=== PATIENT | female | born 1970 | race Caucasian/White ===

== ENCOUNTER 2017-02-18 10:11 | Emergency (ER) | payer SELFPAY ==
[~2017-02-18] VITALS: Ht 157.5 cm; Wt 68.0 kg
[2017-02-18 10:15] VITALS: Ht 157.5 cm; Wt 68.0 kg
[2017-02-19] MEDS ORDERED: LEVO500T10 PO (10:44)
[2017-02-19] MEDS ORDERED: BUTA1CAP38 PO (10:45)
[2017-02-19] MEDS ORDERED: ALPR0.5T PO (11:11)
[2017-02-19] MEDS ORDERED: ONDA4TAB8 PO (11:11)
== END 2017-02-18 12:09 | disposition left against medical advice (07) ==
LOC: FTE 10:11
DX: Z53.21 Procedure and treatment not carried out due to patient leaving prior to being seen by health care provider (principal)

== ENCOUNTER 2017-02-19 06:38 | Emergency (ER) | payer MEDICAID ==
[~2017-02-19] VITALS: Ht 157.5 cm; Wt 68.5 kg
[2017-02-19 06:46] VITALS: Ht 157.5 cm; Wt 68.5 kg
[2017-02-19] MEDS ORDERED: ONDANSETRON 4 MG INJ IV STA (09:28)
[2017-02-19] MEDS ORDERED: HYDROmorphONE 1 MG/ML SYG IV STA (09:28)
[2017-02-19] MEDS ORDERED: SOD CHLORIDE 0.9% 1,000 ML IV STA (09:28)
--- NOTE | 2017-02-19 10:01 | ERD ---
ER Documentation Chief Complaint Chief Complaint pt bib self with c/o MOLINA for a few days, and chest pressure, seen at [facility] HPI 46-year-old woman complains of right sided headache 1 week and complains of recent nausea and dizziness. She was seen and evaluated recently at [facility] and diagnosed with urinary tract infection and prescribed levofloxacin once daily, which she states she has been using as prescribed. She states at [facility] a CT scan of the brain was performed and was unremarkable. She says she has continued right-sided headache as well as nausea, prescription anti-emetics were not provided. She denies fevers or chills, no blurry vision, no neck pain or stiffness, no chest pain or shortness of breath, no abdominal pain. She states she has these headaches about twice a month for many years and denies any difference between this week's headaches and prior headaches. ROS All systems reviewed and are negative except as per history of present illness. Medications Home Meds Active Scripts Ondansetron Hcl* (Zofran*) 4 Mg Tablet, 4 MG PO Q8H Y for NAUSEA AND/OR VOMITING , #12 TAB Prov:DB LOFTON MD 02/19/17 Alprazolam* (Xanax*) 0.5 Mg Tab, 0.5 MG PO TID for musc, #12 TAB Prov:DB LOFTON MD 02/19/17 Reported Medications Mkjipavrsf-Uussjarbzbdxs-Sajiuabc* (Fioricet*) Unknown Strength Capsule, 1 CAP PO Q4H Y for PAIN, CAP take q 4-6h 02/19/17 Levofloxacin* (Levofloxacin*) 500 Mg Tablet, 500 MG PO DAILY, TAB 02/19/17 Allergies Allergies: Coded Allergies: No Known Drug Allergy (Verified Allergy, Mild, N, 02/19/17) PMhx/Soc None History of Surgery: Yes (TUBAL LIGATION) Anesthesia Reaction: No Hx Neurological Disorder: No Hx Respiratory Disorders: No Hx Cardiac Disorders: No Hx Psychiatric Problems: No Hx Miscellaneous Medical Probl: No FmHx Family History: No diabetes Physical Exam Vitals Vital Signs Date Time Temp Pulse Resp B/P Pulse Ox O2 Delivery O2 Flow Rate FiO2 02/19/17 06:46 98.4 74 18 145/86 100 Physical Exam GENERAL: Well-developed, well-nourished, well-hydrated, in no apparent distress , looks nontoxic in appearance HEENT: Moist mucous membranes, pink conjunctiva, no cervical spine tenderness or step-off deformities, no goiter, no jaundice or icterus, extraocular movements intact without pain. No submandibular induration, and no pharyngeal erythema NEURO: Alert and oriented 3, cranial nerves II through XII intact bilaterally, pupils equal round reactive to light, no focal deficits or facial asymmetry, sensation intact distally Strength 5/5 in upper and lower extremities bilaterally CARDIAC: Regular rate and rhythm, no murmurs rubs or gallops LUNGS: Clear bilaterally no wheezing crackles or stridor ABDOMEN: Soft nontender, no guarding, no rigidity, no rebound, no psoas sign no obturator sign. Normoactive bowel sounds SKIN: Warm and dry to touch, no abrasions, contusions, or hematomas, no lacerations, no ecchymosis, no target lesions, and without ulcers EXTREMITIES: No clubbing cyanosis or edema, calves are bilaterally symmetrical, no Homans sign, no popliteal cord sign. Distal pulses equal and bilateral PSYCH: Normal affect without agitation or irritability Result Diagram: 02/19/1793402/19/17934 Results 24 hrs Laboratory Tests Test 02/19/17 09:20 02/19/17 09:35 Urine Color YELLOW Urine Clarity CLEAR Urine pH 5.0 Urine Specific [place] 1.010 Urine Ketones NEGATIVEmg/dL Urine Nitrite NEGATIVEmg/dL Urine Bilirubin NEGATIVEmg/dL Urine Urobilinogen NEGATIVEmg/dL Urine Leukocyte Esterase NEGATIVELeu/ul Urine Microscopic RBC > 182/HPF Urine Microscopic WBC 1/HPF Urine Squamous Epithelial Cells FEW/HPF Urine Hemoglobin 3+mg/dL Urine Glucose NEGATIVEmg/dL Urine Total Protein NEGATIVEmg/dl White Blood Count 8.410^3/ul Red Blood Count 4.5110^6/ul Hemoglobin 13.4g/dl Hematocrit 41.3% Mean Corpuscular Volume 91.6fl Mean Corpuscular Hemoglobin 29.7pg Mean Corpuscular Hemoglobin Concent 32.4g/dl Red Cell Distribution Width 13.5% Platelet Count 61939^3/UL Mean Platelet Volume 10.5fl Neutrophils % 51.7% Lymphocytes % 41.6% Monocytes % 5.1% Eosinophils % 1.0% Basophils % 0.5% Nucleated Red Blood Cells % 0.0/100WBC Neutrophils # 4.310^3/ul Lymphocytes # 3.510^3/ul Monocytes # 0.410^3/ul Eosinophils # 0.110^3/ul Basophils # 0.010^3/ul Nucleated Red Blood Cells # 0.010^3/ul Sodium Level 145mmol/L Potassium Level 3.9mmol/L Chloride Level 106mmol/L Carbon Dioxide Level 26mmol/L Anion Gap 17 Blood Urea Nitrogen 13mg/dl Creatinine 0.66mg/dl Glucose Level 87mg/dl Calcium Level 9.3mg/dl Total Bilirubin 0.2mg/dl Direct Bilirubin 0.00mg/dl Indirect Bilirubin 0.2mg/dl Aspartate Amino Transf (AST/SGOT) 18IU/L Alanine Aminotransferase (ALT/SGPT) 29IU/L Alkaline Phosphatase 75IU/L Total Protein 8.4g/dl Albumin 4.8g/dl Globulin 3.60g/dl Albumin/Globulin Ratio 1.33 Lipase 91U/L Current Medications Medications (Trade) Dose Ordered Sig/Pancho Route PRN Reason Start Time Stop Time Status Last Admin Dose Admin Sodium Chloride (NS) 1,000 ml @ 1,000 mls/hr Q1H STAT IV 02/19/17 09:28 02/19/17 10:27 DC 02/19/17 09:58 Hydromorphone HCl (Dilaudid) 1 mg ONCE STAT IV 02/19/17 09:28 02/19/17 09:29 DC 02/19/17 09:58 Ondansetron HCl (Zofran Inj) 4 mg ONCE STAT IV 02/19/17 09:28 02/19/17 09:29 DC 02/19/17 09:58 Procedures/[facility] IV line was established patient was placed on traffic monitor specialist rhythm strip revealed a sinus rhythm at about 70 bpm with upright P and T waves. Patient was afebrile. EKG performed, read by me: 70 bpm, normal sinus rhythm, normal axis, no acute ST segment changes, narrow QRS complex, with good R-wave progression in precordial leads. I administered 1 L normal saline intravenously, Zofran 4 mg IV, hydromorphone 1 mg IV with excellent effect. CBC and electrolytes are normal, liver function tests normal, urine analysis was negative for infection. Patient was recently diagnosed with urinary tract infection and is currently using levofloxacin, I recommended she continue her antibiotics until complete and agreed to provide her medications for dizziness and nausea to help with her symptoms. Differential diagnoses considered, included but not limited to acute coronary syndrome, pulmonary embolism, aortic dissection, abdominal aortic aneurysm, sepsis, stroke, meningitis, encephalitis, pneumonia, appendicitis, cholecystitis , bowel obstruction, pyelonephritis, nephrolithiasis, cystitis, as well as metabolic, hematologic, and electrolyte abnormalities. As well as abscess, cellulitis, fractures, and dislocations. Patient feels much better at this time, and vital signs are normal, symptoms have improved. I did give strict instructions to return to the ED if symptoms continue or worsen, patient will otherwise follow-up with primary care physician. Patient understood instructions and agreed to plan. Disclaimer: Inadvertent spelling and grammatical errors are likely due to EHR/ dictation software use and do not reflect on the overall quality of patient care. Also, please note that the electronic time recorded on this note does not necessarily reflect the actual time of the patient encounter. Departure Diagnosis: Primary Impression: MOLINA (headache) Headache type: tension-type Headache chronicity pattern: acute headache Intractability: intractable Qualified Code: G44.201 - Acute intractable tension-type headache Additional Impressions: Dizziness UTI (urinary tract infection) Urinary tract infection type: acute cystitis Hematuria presence: without hematuria Qualified Code: N30.00 - Acute cystitis without hematuria Condition: DB Thompson MD Feb 19, 2017 10:01
[2017-02-19 10:06] LABS: BASOPHILS % 0.5 % (0.0-2.0); EOSINOPHILS # 0.1 10^3/ul (0.0-0.5); HEMATOCRIT 41.3 % (37.0-47.0); HEMOGLOBIN 13.4 g/dl (12.0-16.0); LYMPHOCYTES # 3.5 10^3/ul (0.8-2.9); LYMPHOCYTES % 41.6 % (15.0-51.0); MEAN CORPUSCULAR HEMOGLOBIN 29.7 pg (29.0-33.0); MEAN CORPUSCULAR HGB CONC 32.4 g/dl (32.0-37.0); MEAN CORPUSCULAR VOLUME 91.6 fl (82.0-101.0); MEAN PLATELET VOLUME 10.5 fl (7.4-10.4); MONOCYTE # 0.4 10^3/ul (0.3-0.9); MONOCYTES % 5.1 % (0.0-11.0); NEUTROPHIL # 4.3 10^3/ul (1.6-7.5); NEUTROPHILS % 51.7 % (39.0-77.0); PLATELET COUNT 240 10^3/UL (140-415); RED BLOOD COUNT 4.51 10^6/ul (4.20-5.40); RED CELL DISTRIBUTION WIDTH 13.5 % (11.5-14.5); WHITE BLOOD COUNT 8.4 10^3/ul (4.8-10.8)
[2017-02-19 10:26] LABS: ADD UMIC YES; UR ASCORBIC ACID NEGATIVE (NEGATIVE); UR BILIRUBIN (Dip) NEGATIVE (NEGATIVE); UR BLOOD (Dip) 3+ mg/dL (NEGATIVE); UR CLARITY CLEAR (CLEAR); UR COLOR YELLOW (YELLOW); UR GLUCOSE (Dip) NEGATIVE (NEGATIVE); UR KETONES (Dip) NEGATIVE (NEGATIVE); UR LEUKOCYTE ESTERASE (Dip) NEGATIVE Leu/ul (NEGATIVE); UR NITRITE (Dip) NEGATIVE (NEGATIVE); UR RBC > 182 /HPF (0-5); UR SQUAMOUS EPITHELIAL CELL FEW /HPF (FEW); UR TOTAL PROTEIN (Dip) NEGATIVE (NEGATIVE); UR UROBILINOGEN (Dip) NEGATIVE (NEGATIVE)
[2017-02-19] MEDS ORDERED: LEVO500T10 PO (10:44)
[2017-02-19] MEDS ORDERED: BUTA1CAP38 PO (10:45)
[2017-02-19 10:49] LABS: ALBUMIN 4.8 g/dl (3.3-4.9); ALBUMIN/GLOBULIN RATIO 1.33; BILIRUBIN,INDIRECT 0.2 mg/dl (0-1.1); BILIRUBIN,TOTAL 0.2 mg/dl (0.2-1.3); CALCIUM 9.3 mg/dl (8.4-10.2); CREATININE 0.66 mg/dl (0.44-1.00); POTASSIUM 3.9 mmol/L (3.5-5.1); TOTAL PROTEIN 8.4 g/dl (6.1-8.1)
[2017-02-19] MEDS ORDERED: ALPR0.5T PO (11:11)
[2017-02-19] MEDS ORDERED: ONDA4TAB8 PO (11:11)
[2017-02-19 11:57] VITALS: BP 128/68; PULSE 77; RESP 18
== END 2017-02-19 11:58 | disposition home or self-care (01) ==
LOC: E/R 06:38
DX: G44.201 Tension-type headache, unspecified, intractable (principal); R40.2252 Coma scale, best verbal response, oriented, at arrival to emergency department; R42 Dizziness and giddiness; N30.00 Acute cystitis without hematuria; R40.2142 Coma scale, eyes open, spontaneous, at arrival to emergency department; R40.2362 Coma scale, best motor response, obeys commands, at arrival to emergency department
CPT/HCPCS: 36415; 80053; 81001; 83690; 85025; 96374; 96375; J1170; J2405; J7030; Z7502